=== PATIENT | male | born 1930 | race Caucasian/White ===

== ENCOUNTER 2017-06-15 20:39 | Observation (INO) ==
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
[2017-06-15 21:18] LABS: Basophils % 0.3 %; Eosinophils # 0.2 K/mcL (0.0-0.6); Eosinophils % 1.6 %; Hemoglobin 15.5 g/dL (12.9-16.9); Immature Granulocytes % 0.3 % (0-4); Lymphocytes # 3.8 K/mcL (0.6-4.6); Lymphocytes % 34.5 %; Mean Corpuscular HGB Conc 33.7 g/dL (31.6-35.5); Mean Corpuscular Hemoglobin 31.6 pg (28.0-33.3); Mean Corpuscular Volume 93.7 fL (83.0-100.0); Mean Platelet Volume 11.2 fL (9.4-12.4); Monocytes # 1.4 K/mcL (0.0-1.3); Monocytes % 13.2 %; Neutrophils # 5.5 K/mcL (1.6-8.9); Platelet Count 224 K/mcL (140-400); Red Blood Count 4.91 M/mcL (4.19-5.50); Red Cell Distribution Width 13.1 % (11.5-14.5); Segmented Neutrophils % 50.1 %
[2017-06-15 21:29] LABS: Bilirubin,Urine Negative (Negative); Blood,Urine Small (Negative); Clarity,Urine Clear (Clear); Color,Urine Yellow (Yellow); Glucose,Urine (UA) Normal (Normal); Ketones,Urine Negative (Negative); Leukocyte Esterase,Urine Negative (Negative); Nitrite,Urine Negative (Negative); Protein,Urine Negative (Neg-Trace); Specific Gravity,Urine 1.012 (1.010-1.025); Urobilinogen,Urine Normal (Normal)
[2017-06-15 21:31] LABS: Bacteria,Urine None Seen per hpf (None-Few); Hyaline Casts,Urine None Seen per lpf (None-Few); Squamous Epithelial Cell,Urine Few per lpf (None-Few); WBC,Urine 0-3 per hpf (0-3)
[2017-06-15 21:38] LABS: Alanine Aminotransferase 13 Units/L (7-52); Albumin 4.1 g/dL (3.5-5.7); Albumin/Globulin Ratio 1.4 (1.1-2.2); Alkaline Phosphatase 65 Units/L (34-104); Aspartate Amino Transferase 19 Units/L (13-39); BUN/Creatinine Ratio 25 (6-26); Bilirubin,Direct 0.2 mg/dL (0.0-0.2); Bilirubin,Indirect 0.4 mg/dL (0.0-1.2); Bilirubin,Total 0.6 mg/dL (0.3-1.0); Blood Urea Nitrogen 26 mg/dL (8-23); Calcium 9.4 mg/dL (8.6-10.3); Carbon Dioxide 27 mEq/L (23-29); Chloride 102 mEq/L (98-107); Glucose 105 mg/dL (70-105); Osmolality,Calculated 293 (280-300); Potassium 3.6 mEq/L (3.5-5.1); Sodium 139 mEq/L (136-145); Total Protein 7.1 g/dL (6.4-8.9); eGFR For African Americans > 60 (> 60); eGFR For Non-African Americans > 60 (> 60)
[2017-06-15 21:39] LABS: Troponin I < 0.03 ng/mL (< 0.04)
[2017-06-15 21:50] LABS: Amphetamine Screen,Urine Negative ng/mL (Cutoff=1000); Barbiturate Screen,Urine Negative ng/mL (Cutoff=200); Benzodiazepines Screen,Urine Negative ng/mL (Cutoff=200); Cannabinoid Screen,Urine Negative ng/mL (Cutoff = 50); Cocaine Screen,Urine Negative ng/mL (Cutoff= 300); Opiate Screen,Urine Negative ng/mL (Cutoff=300); Phencyclidine Screen,Urine Negative ng/mL (Cutoff=25)
[2017-06-15] MEDS ORDERED: Naloxone 0.4 MG/ML INJ IVP PRN (22:45)
[2017-06-15] MEDS ORDERED: Acetaminophen 325 MG TABLET PO PRN (22:45)
--- NOTE | 2017-06-15 22:48 | Internal Med History&Physical ---
Date of Encounter: 06/16/17 Time of Encounter: 22:46 Internal Medicine - H&P: HPI Chief complaint: Confusion Admitted From: Home Plans for Post Hospital Care: Home History of present illness: Mr. Tovar is a 87 year old male with history of Alzheimer's dementia, hypertension who presents to the ED with some family members or not exactly immediate family. Initially there was a concern regarding some shortness of breath and shaking and worsening confusion patient has over the phone with a friend of his. The patient has also been showing signs of worsening Alzheimer' s dementia. He follows with a neurologist for that. The patient has been searching for his lately. Family members are concerned about his safety being alone at home. Upon presentation to the ED he was hemodynamically stable other than mildly elevated blood pressure. Workup including CT head was unremarkable. No fever, nausea, vomiting, headache, chest pain, abdominal pain , urinary symptoms, or urological symptoms. Past Med Surg Social Fam HX - Past Medical History Medical history: non-contributory, dementia, hypertension Psychiatric history: no psych history - Social History Smoking Status: Never smoker Smokeless Tobacco Status: No Alcohol use: none Drug use: none Internal Medicine - H&P: Meds Aspirin [Aspirin] 81 mg PO DAILY 06/15/17 [History] Lisinopril 20 mg PO DAILY 06/15/17 [History] Vitamin B-12 1,000 mcg PO DAILY 06/15/17 [History] Vitamin D3 1,000 unit PO DAILY 06/15/17 [History] hydroCHLOROthiazide 25 mg PO DAILY 06/15/17 [History] 3 Allergy/AdvReac Type Severity Reaction Status Date / Time No Known Allergies Allergy Verified 11/08/16 14:42 All Systems PM: A 10-system review of systems was performed and is negative for pertinent findings except as documented above in the HPI. Review of systems: All systems reviewed are negative except for as mentioned above - Constitutional Vitals: Temp Pulse Resp BP Pulse Ox 97.4 F L 60 18 170/111 97 06/15/17 20:42 06/15/17 22:01 06/15/17 22:01 06/15/17 22:01 06/15/17 22:01 Exam: GEN: NAD HEENT: AT, NC, No cyanosis, oral mucosa is moist, No JVD Lymphatics: No lymphadenoapthy Eyes: Extrocular muscles intact, anicteric CVS:RRR. S1, S2, No m/r/g RESP: CTAB ABD: Soft, NT, ND, +BS EXT: No edema, No rashes, 2+ DP NEURO: Nonfocal, CN II-XII intact, No focal motor or sensory deficits Psych: Cooperative, Not anxious or depressed Internal Med - H&P Results - Labs CBC & Chem 7: 06/15/17 20:58 06/15/17 20:58 Labs: Short CBC 06/15/17 Range/Units 20:58 WBC 10.9 (4.3-11.1) K/mcL Hgb 15.5 (12.9-16.9) g/dL Hct 46.0 (37.5-50.1) % Plt Count 224 (140-400) K/mcL Neutrophils # 5.5 (1.6-8.9) K/mcL BMP 06/15/17 20:58 Sodium 139 Potassium 3.6 Chloride 102 Carbon Dioxide 27 BUN 26 H Creatinine 1.03 Glucose 105 Calcium 9.4 Cardiac Enzymes 06/15/17 Range/Units 20:58 Troponin I < 0.03 (< 0.04) ng/mL Liver Function 06/15/17 Range/Units 20:58 Total Bilirubin 0.6 (0.3-1.0) mg/dL Direct Bilirubin 0.2 (0.0-0.2) mg/dL AST 19 (13-39) Units/L ALT 13 (7-52) Units/L Alkaline Phosphatase 65 (34-104) Units/L Albumin 4.1 (3.5-5.7) g/dL Urine 06/15/17 Range/Units 21:02 Urine Color Yellow (Yellow) Urine Clarity Clear (Clear) Urine pH 7.0 (5.0-8.0) pH Units Ur Specific [place] 1.012 (1.010-1.025) Urine Protein Negative (Neg-Trace) mg/dL Urine Glucose (UA) Normal (Normal) mg/dL - Impressions ITS Impressions Chest X-Ray 06/15/17 20:58 IMPRESSION: No radiographic evidence of acute cardiopulmonary disease. D/ / Michael Colmenares / Michael Colmenares Interpreting Provider: Michael Colmenares Head CT 06/15/17 20:59 IMPRESSION: No acute intracranial abnormality. D/ / Agustín Anne MD / Agustín Anne MD Interpreting Provider: Agustín Anne MD - Assessment and plan (1) Goals of care, counseling/discussion Current Visit: Yes Status: Acute Assessment and plan: Patient will likely need to be placed. We will get PTOT to see him. (2) Hypertensive urgency Current Visit: Yes Status: Acute Assessment and plan: Blood pressure is elevated. We will give him his home blood pressure pills and order IV hydralazine when necessary. (3) Dementia Current Visit: Yes Status: Chronic Assessment and plan: Conservative management. Patient may have had worsening of his Alzheimer's dementia. Workup was mostly unremarkable except for somewhat elevated blood pressure which may be contributing. We will continue to monitor. Qualifiers: Dementia type: unspecified type Dementia behavioral disturbance: without behavioral disturbance Qualified Code(s): F03.90 - Unspecified dementia without behavioral disturbance (4) DVT prophylaxis Current Visit: Yes Status: Acute Assessment and plan: Heparin subcutaneous - Time Spent With Patient Total time spent is greater than 50% in coordination of care (as documented) at patient's floor/unit and/or counseling patient:
[2017-06-16] MEDS: hydroCHLOROthiazide 25 MG TABLET PO SCH ×2 (06:54→09:25)
[2017-06-16] MEDS: Lisinopril 20 MG TABLET PO SCH ×2 (06:54→09:25)
[2017-06-16] MEDS: *HR* Heparin 5,000 UNIT/ML VIAL SQ SCH ×4 (06:57→21:09)
[2017-06-16] MEDS ORDERED: Ringers Solution, Lactated 1,000 ML IVC SCH (08:00)
[2017-06-16] MEDS: Cyanocobalamin (B-12) 1,000 MCG TABLET PO SCH (09:25)
[2017-06-16] MEDS: Aspirin 81 MG TAB.CHEW PO SCH (09:25)
[2017-06-16] MEDS: Cholecalciferol (D-3) 1,000 UNIT TABLET PO SCH (09:25)
[2017-06-16] MEDS ORDERED: Haloperidol Lactate 5 MG/ML VIAL IVP ONE (14:49)
[2017-06-16] MEDS ORDERED: Haloperidol Lactate 5 MG/ML VIAL ONE (14:50)
--- NOTE | 2017-06-16 15:03 | Internal Med Progress Note ---
Date of Encounter: 06/16/17 Time of Encounter: 14:56 - Assessment and plan (1) Delirium Current Visit: Yes Status: Acute Assessment and plan: Due to underlying dementia. Patient lives alone at home. Remains disoriented. No signs of metabolic encephalopathy. We will consult social science professor to discuss placement as he would not be able to live alone given his current mental status. If patient continues to exhibit signs of systemic delirium, will consider starting him on low-dose risperidone. (2) Dementia Current Visit: Yes Status: Chronic Assessment and plan: Continue supportive care. Fall precautions. Qualifiers: Dementia type: unspecified type Dementia behavioral disturbance: without behavioral disturbance Qualified Code(s): F03.90 - Unspecified dementia without behavioral disturbance (3) Hypertensive urgency Current Visit: Yes Status: Acute Assessment and plan: Improved. Blood pressure is much better today. Continue hydrochlorothiazide and lisinopril. (4) DVT prophylaxis Current Visit: Yes Status: Acute Assessment and plan: With subcutaneous heparin (5) Goals of care, counseling/discussion Current Visit: Yes Status: Acute Assessment and plan: refuse and recycling worker consulted. Patient will most likely need placement - Time Spent With Patient Total time spent is greater than 50% in coordination of care (as documented) at patient's floor/unit and/or counseling patient: - Subjective Interval history: Patient remains confused and disoriented. Denies any pain at this time. No shortness of breath. No fever or chills reported - Constitutional Vitals: Temp Pulse Resp BP Pulse Ox 98.3 F 57 17 122/69 96 06/16/17 11:20 06/16/17 11:20 06/16/17 11:20 06/16/17 11:20 06/16/17 11:20 General appearance: Present: cooperative, A&O X 1. Absent: answers questions appropriately - Neck Neck exam general surgery: Present: supple, trachea midline. Absent: lymphadenopathy - Respiratory Respiratory exam: Present: CTAB. Absent: accessory muscle use, rales, rhonchi, wheezes - Cardiovascular Cardiovascular exam: Present: RRR, +S1, +S2. Absent: diastolic murmur, gallop, rubs, systolic murmur - GI/Abdominal GI/Abdominal exam: Present: normal bowel sounds, soft, no peritoneal signs. Absent: distended, tenderness - Extremities Exam Extremities exam: Present: warm, radial pulses palpable and symmetrical. Absent : calf tenderness, cyanotic, pedal edema - Neurological Exam Neurological exam: Present: alert, no focal deficits. Absent: facial droop, speech deficit - Skin Skin exam: Present: dry, intact Internal Medicine: Result - Labs CBC & Chem 7: 06/15/17 20:58 06/15/17 20:58 Consult Discharge Plan - Plan Referrals: Ignacio Carlin MD [Primary Care Provider] -
[2017-06-17] MEDS: *HR* Heparin 5,000 UNIT/ML VIAL SQ SCH ×3 (05:38→22:17)
[2017-06-17] MEDS: Lisinopril 20 MG TABLET PO SCH (08:50)
[2017-06-17] MEDS: Cyanocobalamin (B-12) 1,000 MCG TABLET PO SCH (08:50)
[2017-06-17] MEDS: Cholecalciferol (D-3) 1,000 UNIT TABLET PO SCH (08:50)
[2017-06-17] MEDS: hydroCHLOROthiazide 25 MG TABLET PO SCH (08:51)
[2017-06-17] MEDS: Aspirin 81 MG TAB.CHEW PO SCH (08:51)
[2017-06-17] MEDS ORDERED: Haloperidol Lactate 5 MG/ML VIAL IVP ONE ×3 (13:51→19:03)
--- NOTE | 2017-06-17 15:25 | Internal Med Progress Note ---
Date of Encounter: 06/17/17 Time of Encounter: 15:23 - Assessment and plan (1) Delirium Current Visit: Yes Status: Acute Assessment and plan: Patient having intermittent episodes of delirium. Due to underlying dementia. No signs of metabolic encephalopathy. Head CT negative. No signs of acute infection. We will use antipsychotic agents for acute agitation with risk for harm to self for others. (2) Dementia Current Visit: Yes Status: Chronic Assessment and plan: Patient appears to be having underlying dementia with progression. Unsafe to be alone at home unsupervised. Patient lives alone. [facility]. inpatient services director consulted for discharge planning. Qualifiers: Dementia type: unspecified type Dementia behavioral disturbance: without behavioral disturbance Qualified Code(s): F03.90 - Unspecified dementia without behavioral disturbance (3) Hypertensive urgency Current Visit: Yes Status: Resolved Assessment and plan: Blood pressure is better controlled. Continue hydrochlorothiazide and lisinopril. IV hydralazine as needed for systolic blood pressure greater than 160. (4) Goals of care, counseling/discussion Current Visit: Yes Status: Acute Assessment and plan: Discussed with [id number] who helps take care of patient. Expressed understanding about patient's condition and need for placement to penit[facility]iary. (5) Essential hypertension Current Visit: Yes Status: Chronic Assessment and plan: Blood pressure is better controlled. Continue lisinopril and hydrochlorothiazide (6) DVT prophylaxis Current Visit: Yes Status: Acute Assessment and plan: subcutaneous heparin - Time Spent With Patient Total time spent is greater than 50% in coordination of care (as documented) at patient's floor/unit and/or counseling patient: - Subjective Interval history: Patient is awake and alert. Remains disoriented. Significant memory loss. Denies any complaints at this time. - Constitutional Vitals: Temp Pulse Resp BP Pulse Ox 97.4 F L 60 14 130/54 97 06/17/17 11:00 06/17/17 11:00 06/17/17 11:00 06/17/17 11:00 06/17/17 11:00 General appearance: Present: cooperative, A&O X 1, answers questions appropriately - Eye Eye exam: Present: EOMI, PERRL, conjuntiva pink, sclera anicteric - Neck Neck exam general surgery: Present: supple, trachea midline. Absent: lymphadenopathy - Respiratory Respiratory exam: Present: CTAB. Absent: accessory muscle use, rales, rhonchi, wheezes - Cardiovascular Cardiovascular exam: Present: RRR, +S1, +S2. Absent: diastolic murmur, gallop, rubs, systolic murmur - GI/Abdominal GI/Abdominal exam: Present: normal bowel sounds, soft, no peritoneal signs. Absent: distended, tenderness - Extremities Exam Extremities exam: Present: warm, radial pulses palpable and symmetrical. Absent : calf tenderness, cyanotic, pedal edema Internal Medicine: Result - Labs CBC & Chem 7: 06/15/17 20:58 06/15/17 20:58 Consult Discharge Plan - Plan Referrals: Ignacio Carlin MD [Primary Care Provider] -
[2017-06-18 05:19] LABS: Basophils % 0.3 %; Eosinophils # 0.2 K/mcL (0.0-0.6); Eosinophils % 1.5 %; Hematocrit 42.1 % (37.5-50.1); Immature Granulocytes % 0.2 % (0-4); Lymphocytes # 3.4 K/mcL (0.6-4.6); Lymphocytes % 34.7 %; Mean Corpuscular HGB Conc 33.3 g/dL (31.6-35.5); Mean Corpuscular Hemoglobin 30.7 pg (28.0-33.3); Mean Corpuscular Volume 92.3 fL (83.0-100.0); Mean Platelet Volume 10.9 fL (9.4-12.4); Monocytes # 1.4 K/mcL (0.0-1.3); Monocytes % 14.2 %; Neutrophils # 4.8 K/mcL (1.6-8.9); Platelet Count 179 K/mcL (140-400); Red Blood Count 4.56 M/mcL (4.19-5.50); Red Cell Distribution Width 13.2 % (11.5-14.5); Segmented Neutrophils % 49.1 %
[2017-06-18 05:34] LABS: BUN/Creatinine Ratio 24 (6-26); Blood Urea Nitrogen 29 mg/dL (8-23); Carbon Dioxide 24 mEq/L (23-29); Chloride 107 mEq/L (98-107); Glucose 117 mg/dL (70-105); Osmolality,Calculated 299 (280-300); Potassium 3.4 mEq/L (3.5-5.1); Sodium 141 mEq/L (136-145); eGFR For African Americans > 60 (> 60); eGFR For Non-African Americans 57 (> 60)
[2017-06-18] MEDS ORDERED: Potassium Chloride Elixir 20 MEQ/15 ML UDC PO ONE (08:07)
--- NOTE | 2017-06-18 08:27 | Internal Med Progress Note ---
Date of Encounter: 06/18/17 Time of Encounter: 08:22 - Assessment and plan (1) Dementia Current Visit: Yes Status: Chronic Assessment and plan: - History of dementia, unclear etiology, likely Alzheimer's disease. - Check a vitamin B6, B12, and RPR, TSH normal. - Resume home medication Aricept, and Seroquel daily at bedtime for behavior issues. - Family concerning safety at home, currently living alone, I talked to social media director this morning about discharge planning. We will have a family meeting to discuss the destination for discharge. - Fall risk. Qualifiers: Dementia type: unspecified type Dementia behavioral disturbance: without behavioral disturbance Qualified Code(s): F03.90 - Unspecified dementia without behavioral disturbance (2) Hypertensive urgency Current Visit: Yes Status: Resolved Assessment and plan: - BP better controlled, continue current treatment. (3) DVT prophylaxis Current Visit: Yes Status: Acute Assessment and plan: subcutaneous heparin (4) Goals of care, counseling/discussion Current Visit: Yes Status: Acute Assessment and plan: Discussed with [id number] who helps take care of patient. Expressed understanding about patient's condition and need for placement to skilled nursing. (5) Delirium Current Visit: Yes Status: Acute Assessment and plan: Patient having intermittent episodes of delirium. Due to underlying dementia. No signs of metabolic encephalopathy. Head CT negative. No signs of acute infection. (6) Essential hypertension Current Visit: Yes Status: Chronic Assessment and plan: Blood pressure is better controlled. Continue lisinopril and hydrochlorothiazide (7) Hypokalemia Current Visit: Yes Status: Acute Assessment and plan: - Replaced, repeat BMP in a.m. - Time Spent With Patient Total time spent is greater than 50% in coordination of care (as documented) at patient's floor/unit and/or counseling patient: Greater than 35 minutes - Subjective Interval history: Pt seen and he is at his baseline status. No agitation or hallucination. - Constitutional Vitals: Temp Pulse Resp BP Pulse Ox 98 F 56 16 132/80 95 06/18/17 07:45 06/18/17 07:45 06/18/17 07:45 06/18/17 07:45 06/18/17 07:45 General appearance: Present: cooperative, A&O X 1, answers questions appropriately Exam: PHYSICAL EXAMINATION: GENERAL APPEARANCE: The patient is alert, and in no acute distress. HEENT: Head is normocephalic. The sinuses are nontender. Pupils are equal and reactive. The nares are patent. Oropharynx clear without lesions. NECK: Supple without lymphadenopathy. HEART: Regular rate and rhythm. LUNGS: No crackles or wheezes are heard. ABDOMEN: Soft, nontender, nondistended with good bowel sounds heard. Inguinal area is normal. EXTREMITIES: Without cyanosis, clubbing or edema. NEUROLOGICAL: Gross nonfocal. SKIN: Warm and dry without any rash. Internal Medicine: Result - Labs CBC & Chem 7: 06/18/17 05:01 06/18/17 05:01 Labs: Short CBC 06/18/17 Range/Units 05:01 WBC 9.7 (4.3-11.1) K/mcL Hgb 14.0 D (12.9-16.9) g/dL Hct 42.1 (37.5-50.1) % Plt Count 179 (140-400) K/mcL Neutrophils # 4.8 (1.6-8.9) K/mcL BMP 06/18/17 05:01 Sodium 141 Potassium 3.4 L Chloride 107 Carbon Dioxide 24 BUN 29 H Creatinine 1.21 Glucose 117 H Calcium 9.0 Consult Discharge Plan - Plan Referrals: Ignacio Carlin MD [Primary Care Provider] - (patient need placement)
[2017-06-18] MEDS: Aspirin 81 MG TAB.CHEW PO SCH (09:31)
[2017-06-18] MEDS: Lisinopril 20 MG TABLET PO SCH (09:31)
[2017-06-18] MEDS: Cholecalciferol (D-3) 1,000 UNIT TABLET PO SCH (09:31)
[2017-06-18] MEDS: Cyanocobalamin (B-12) 1,000 MCG TABLET PO SCH (09:31)
[2017-06-18] MEDS: hydroCHLOROthiazide 25 MG TABLET PO SCH (09:31)
[2017-06-18] MEDS: *HR* Heparin 5,000 UNIT/ML VIAL SQ SCH ×2 (16:16→21:21)
--- NOTE | 2017-06-19 00:28 | Electrocardiograph Report ---
[address] [address] Test Date: 2017-06-15 Pat Name: Ross Tovar Department: 103 Room: 2A16 Gender: M Weaver Dobby Loom: MAXIMO : [id number] Requested By: Giovanni Vegas Order Number: [id number] Reading MD: Nicole Naidu Measurements Intervals [place] Rate: 56 P: 19 TN: 189 QRS: 15 QRSD: 80 T: 19 QT: 383 QTc: 373 Interpretive Statements SINUS BRADYCARDIA Electronically Signed On 06-19-2017 0:27:02 EDT by Nicole Naidu
[2017-06-19] MEDS: *HR* Heparin 5,000 UNIT/ML VIAL SQ SCH ×2 (06:02→13:17)
[2017-06-19 07:17] LABS: BUN/Creatinine Ratio 28 (6-26); Blood Urea Nitrogen 30 mg/dL (8-23); Calcium 9.3 mg/dL (8.6-10.3); Carbon Dioxide 25 mEq/L (23-29); Chloride 109 mEq/L (98-107); Glucose 100 mg/dL (70-105); Osmolality,Calculated 302 (280-300); Sodium 143 mEq/L (136-145); eGFR For African Americans > 60 (> 60); eGFR For Non-African Americans > 60 (> 60)
--- NOTE | 2017-06-19 07:46 | Internal Med Progress Note ---
Date of Encounter: 06/19/17 Time of Encounter: 07:44 - Assessment and plan (1) Dementia Current Visit: Yes Status: Chronic Assessment and plan: - History of dementia, unclear etiology, likely Alzheimer's disease. - Check a vitamin B12 and TSH normal. pending RPR and Vit B6. - Continue home medication Aricept, continue Seroquel daily at bedtime for behavior issues. - Family concerning safety at home, currently living alone, family prefer NH, appreciate [employer] social worker help with discharge planning. - Fall risk and Sitter. Qualifiers: Dementia type: unspecified type Dementia behavioral disturbance: without behavioral disturbance Qualified Code(s): F03.90 - Unspecified dementia without behavioral disturbance (2) Hypertensive urgency Current Visit: Yes Status: Resolved Assessment and plan: - BP better controlled, continue current treatment. (3) DVT prophylaxis Current Visit: Yes Status: Acute Assessment and plan: subcutaneous heparin (4) Goals of care, counseling/discussion Current Visit: Yes Status: Acute Assessment and plan: dc NH per family request. (5) Delirium Current Visit: Yes Status: Acute Assessment and plan: continue seroquel. (6) Essential hypertension Current Visit: Yes Status: Chronic Assessment and plan: Blood pressure is better controlled. Continue lisinopril and hydrochlorothiazide (7) Hypokalemia Current Visit: Yes Status: Resolved - Time Spent With Patient Total time spent is greater than 50% in coordination of care (as documented) at patient's floor/unit and/or counseling patient: Greater than 35 minutes - Subjective Interval history: Per night cleaner staff, patient has been wondering at the bedside, no violent behaviors or hallucination. - Constitutional Vitals: Temp Pulse Resp BP Pulse Ox 98.0 F 56 16 145/76 94 06/19/17 02:18 06/19/17 02:18 06/19/17 02:18 06/19/17 02:18 06/19/17 02:18 General appearance: Present: cooperative, A&O X 1, answers questions appropriately Exam: PHYSICAL EXAMINATION: GENERAL APPEARANCE: The patient is alert and in no acute distress. HEENT: Head is normocephalic. The sinuses are nontender. Pupils are equal and reactive. The nares are patent. Oropharynx clear without lesions. NECK: Supple without lymphadenopathy. HEART: Regular rate and rhythm. LUNGS: No crackles or wheezes are heard. ABDOMEN: Soft, nontender, nondistended with good bowel sounds heard. Inguinal area is normal. EXTREMITIES: Without cyanosis, clubbing or edema. NEUROLOGICAL: Gross nonfocal. SKIN: Warm and dry without any rash. Internal Medicine: Result - Labs CBC & Chem 7: 06/18/17 05:01 06/19/17 06:01 Labs: BMP 06/19/17 06:01 Sodium 143 Potassium 4.0 Chloride 109 H Carbon Dioxide 25 BUN 30 H Creatinine 1.08 Glucose 100 Calcium 9.3 Consult Discharge Plan - Plan Referrals: Ignacio Carlin MD [Primary Care Provider] - (patient need placement)
[2017-06-19] MEDS: hydroCHLOROthiazide 25 MG TABLET PO SCH (09:41)
[2017-06-19] MEDS: Lisinopril 20 MG TABLET PO SCH (09:42)
[2017-06-19] MEDS: Cholecalciferol (D-3) 1,000 UNIT TABLET PO SCH (09:42)
[2017-06-19] MEDS: Cyanocobalamin (B-12) 1,000 MCG TABLET PO SCH (09:42)
[2017-06-19] MEDS: Aspirin 81 MG TAB.CHEW PO SCH (09:42)
[2017-06-19 15:32] VITALS: BP 177/85
--- NOTE | 2017-06-19 16:16 | Discharge Summary ---
- NOTES TO OUTPATIENT PROVIDER Notes to Outpatient Provider: f/u with PCP as needed Orders not resulted at time of discharge: Pending orders 06/18/17 08:54 Vitamin B6 (Pyridoxal 5-Phos Routine 06/20/17 04:00 BMP [Basic Metabolic Panel] AM 0400 Complete Blood Count [HEME] AM 0400 Date of Encounter: 06/19/17 Time of Encounter: 16:13 - Discharge Diagnosis (1) Dementia Priority: Primary Status: Chronic Qualifiers: Dementia type: unspecified type Dementia behavioral disturbance: without behavioral disturbance Qualified Code(s): F03.90 - Unspecified dementia without behavioral disturbance (2) Hypertensive urgency Priority: Primary Status: Resolved (3) DVT prophylaxis Priority: Secondary Status: Resolved (4) Goals of care, counseling/discussion Priority: Primary Status: Acute (5) Delirium Priority: Primary Status: Acute (6) Essential hypertension Priority: Secondary Status: Chronic (7) Hypokalemia Priority: Primary Status: Resolved Hospital course: Mr. Tovar is a 87 year old male is history of dementia and hypertension presented with mental status change and elevated blood pressure. Further workup including labs and imaging study ruled out infection, metabolic derangement, medication side effect, and intracranial abnormalities. His mental status change is very likely the manifestation of the disease progression , as he has been demented for years. Family was concerned about his safety at home, he is currently living alone. After discussed with patient, family, and a social worker psychiatric, decision was made to discharge the patient to [facility] facility. His vital signs have been stable, labs were unremarkable, he has been tolerating oral. He will be transferred to the [facility] facility today and continue his care there. Discharge discussed with: patient Time spent discussing smoking cessation with patient: more than 10 minutes - Time Spent with Patient Total time spent providing and/or coordinating discharge services: Greater than 30 minutes - Discharge Medications Home Medications: Aspirin 81 mg PO DAILY 06/15/17 [History] Cholecalciferol (D-3) [Vitamin D] 1,000 unit PO DAILY 06/15/17 [History] Cyanocobalamin (Vitamin B-12) [Vitamin B-12] 1,000 mcg PO DAILY 06/15/17 [ History] Lisinopril [Zestril] 20 mg PO DAILY 06/15/17 [History] hydroCHLOROthiazide [Hydrochlorothiazide] 25 mg PO DAILY 06/15/17 [History] Donepezil [Aricept] 10 mg PO DAILY 06/17/17 [History] Simvastatin [Zocor] 10 mg PO HS 06/17/17 [History] Acetaminophen [Tylenol] 650 mg PO Q6HR PRN tablet 06/19/17 [Rx] Heparin 5,000 unit SQ Q8HCO vial 06/19/17 [Rx] Quetiapine Fumarate [Seroquel] 25 mg PO HS tablet 06/19/17 [Rx] Allergies/Adverse Reactions: 3 Allergy/AdvReac Type Severity Reaction Status Date / Time No Known Allergies Allergy Verified 06/17/17 14:07 Date of admission: 06/15/17 22:47 Primary care physician: Ignacio Carlin MD Consults: 06/15/17 23:56 Consult to Paste Plant Supervisor [CONS] Routine Reason for SW Consult: Possible placement/Home health services Anticipated date of discharge: 06/19/17 - Constitutional Vitals: Temp Pulse Resp BP Pulse Ox 97.8 F 57 18 177/85 98 06/19/17 15:27 06/19/17 15:27 06/19/17 15:27 06/19/17 15:27 06/19/17 15:27 General appearance: Present: cooperative, A&O X 1, answers questions appropriately Exam: PHYSICAL EXAMINATION: GENERAL APPEARANCE: The patient is alert and in no acute distress. HEENT: Head is normocephalic. The sinuses are nontender. Pupils are equal and reactive. The nares are patent. Oropharynx clear without lesions. NECK: Supple without lymphadenopathy. HEART: Regular rate and rhythm. LUNGS: No crackles or wheezes are heard. ABDOMEN: Soft, nontender, nondistended with good bowel sounds heard. Inguinal area is normal. EXTREMITIES: Without cyanosis, clubbing or edema. NEUROLOGICAL: Gross nonfocal. SKIN: Warm and dry without any rash. - Patient Status Disposition: Transfer SNF Condition: Fair Functional capacity at discharge: wheelchair bound Overall status at discharge: patient is progressing back to baseline - Discharge Instructions Follow Up With: Ignacio Carlin MD [Primary Care Provider] - (Patient will follow up with [facility] PCP) - Diet and Activity Activity: ambulate only with your walker, as per physical therapy Diet: regular diet
--- NOTE | 2017-06-19 16:28 | Physician Discharge Referral ---
ExtendedCare Referral Info Transfer To: [place] Provider in Charge after Transfer: Other Institutional Level of Care: Skilled - Diagnosis (1) Dementia Status: Chronic (2) Hypertensive urgency Status: Resolved (3) DVT prophylaxis Status: Resolved (4) Goals of care, counseling/discussion Status: Acute (5) Delirium Status: Acute (6) Essential hypertension Status: Chronic (7) Hypokalemia Status: Resolved - Transfer Medications Home Medications: Aspirin 81 mg PO DAILY 06/15/17 [History] Cholecalciferol (D-3) [Vitamin D] 1,000 unit PO DAILY 06/15/17 [History] Cyanocobalamin (Vitamin B-12) [Vitamin B-12] 1,000 mcg PO DAILY 06/15/17 [ History] Lisinopril [Zestril] 20 mg PO DAILY 06/15/17 [History] hydroCHLOROthiazide [Hydrochlorothiazide] 25 mg PO DAILY 06/15/17 [History] Donepezil [Aricept] 10 mg PO DAILY 06/17/17 [History] Simvastatin [Zocor] 10 mg PO HS 06/17/17 [History] Acetaminophen [Tylenol] 650 mg PO Q6HR PRN tablet 06/19/17 [Rx] Heparin 5,000 unit SQ Q8HCO vial 06/19/17 [Rx] Quetiapine Fumarate [Seroquel] 25 mg PO HS tablet 06/19/17 [Rx] Allergies/Adverse Reactions: 3 Allergy/AdvReac Type Severity Reaction Status Date / Time No Known Allergies Allergy Verified 06/17/17 14:07 - Respiratory Orders Smoking Cessation: Smoking cessation has been advised. For more information, call the [place] Tobacco Quit Line at 2-283-NHAQ-NOW. CERTIFICATION: I certify that the transfer of the above named patient to an Extended Care Facility is necessary for the continuing treatment of the diagnosis listed. The above information is true and accurate reflection of patient's current condition. Confidential - Redisclosure prohibited without a patient's written consent.
== END 2017-06-19 17:50 ==
LOC: EMEROO 20:39 → 3NENU 20:39 → SUATTDRO 22:47 → 3NENU 23:36 → 2ANU 06-17 10:29
PROVIDERS: ADMIT Internal Medicine; ATTEND Internal Medicine